=== PATIENT | female | born 1945 | race Caucasian/White ===

== ENCOUNTER 2017-07-18 10:26 | Emergency (ER) | payer OTHER, MEDICAID ==
[~2017-07-18] VITALS: Wt 62.0 kg
[~2017-07-18 10:26] MED LIST: ASPI-664 PO; AZIT2.5D4 OP; HYDR25TA6 PO; LISI40TA9 PO; LORA10TA3 PO; METO-429 PO; OMEP40CA6 PO; POTA8CAP PO; SIMV20TA2 PO; SITA100T8 PO
[2017-07-18] MEDS ORDERED: KETOROLAC 30 MG INJ IM STA (10:45)
[2017-07-18] MEDS ORDERED: TRAM50TA2 PO (11:42)
[2017-07-18] MEDS ORDERED: IBUP400T22 PO (11:42)
--- NOTE | 2017-07-18 11:51 | ERD ---
ER Documentation Chief Complaint Chief Complaint back pain HPI This 11-year-old female presents with low back pain since yesterday patient has a history of trauma or inciting events. She denies any urinary complaints, weakness or radiation. She denies any cough, shortness breath or chest pain or abdominal pain. ROS All systems reviewed and are negative except as per history of present illness. Medications Home Meds Active Scripts Tramadol HCl (Tramadol HCl) 50 Mg Tablet, 50 MG PO Q4 Y for PAIN, #20 TAB Prov:HENRY ALEX MD 07/18/17 Ibuprofen* (Motrin*) 400 Mg Tab, 400 MG PO Q6, #20 TAB Prov:HENRY ALEX MD 07/18/17 Azithromycin (Azasite) 2.5 Ml Drops, 2.5 ML OP BID for 5 Days, BOTTLE Prov:VENTURA GRAVES NP 12/08/15 Reported Medications Loratadine* (Loratadine*) 10 Mg Tablet, 10 MG PO DAILY, TAB 01/06/15 Potassium Chloride* (Potassium Chloride*) 8 Meq Capsule.er, 8 MEQ PO DAILY, CAP 01/06/15 Simvastatin (Simvastatin) 20 Mg Tablet, 20 MG PO HS, TAB 01/06/15 Omeprazole* (Omeprazole*) 40 Mg Capsule.dr, 40 MG PO BID, CAP 01/06/15 Hydrochlorothiazide* (Hydrochlorothiazide*) 25 Mg Tab, 25 MG PO DAILY, TAB 01/06/15 Sitagliptin* (Januvia*) 100 Mg Tablet, 100 MG PO DAILY, TAB 01/06/15 Lisinopril* (Lisinopril*) 40 Mg Tablet, 40 MG PO DAILY, TAB 01/06/15 Aspirin* (Aspirin* EC) 81 Mg Tablet.dr, 81 MG PO DAILY, TAB 01/06/15 Metoprolol Tartrate* (Lopressor*) 50 Mg Tab, 50 MG PO BID, TAB 01/06/15 Allergies Allergies: Coded Allergies: No Known Allergy (Unverified , 07/18/17) PMhx/Soc History of Surgery: Yes (APPENDECTOMY, TUBAL LIGATION, tonsils, gallbladder) Anesthesia Reaction: No Hx Neurological Disorder: No Hx Respiratory Disorders: No Hx Cardiac Disorders: Yes (HTN, HYPERLIPIDEMIA) Hx Psychiatric Problems: No Hx Miscellaneous Medical Probl: Yes (GERD, dm) Hx Alcohol Use: No Hx Substance Use: No Hx Tobacco Use: No Smoking Status: Never smoker Physical Exam Vitals Vital Signs Date Time Temp Pulse Resp B/P Pulse Ox O2 Delivery O2 Flow Rate FiO2 07/18/17 10:28 98.2 70 20 103/56 97 Physical Exam Const: [] Alert, eck-hca-somdfwaas. Head: Atraumatic Eyes: Normal Conjunctiva ENT: Normal External Ears, Nose and Mouth. Neck: Full range of motion..~ No meningismus. Resp: Clear to auscultation bilaterally Cardio: Regular rate and rhythm, no murmurs Abd: Soft, non tender, non distended. Normal bowel sounds Skin: No petechiae or rashes Back: No midline or flank tenderness. Tenderness in the L4-5 paraspinous muscles. No midline tenderness or deformities. Ext: No cyanosis, or edema Neur: Awake and alert Psych: Normal Mood and Affect Results 24 hrs Current Medications Medications (Trade) Dose Ordered Sig/Howard Route PRN Reason Start Time Stop Time Status Last Admin Dose Admin Ketorolac Tromethamine (Toradol) 30 mg ONCE STAT IM 07/18/17 10:45 07/18/17 10:46 DC 07/18/17 11:16 Procedures/MDM Was given Toradol 30 mg IM. X-ray LS-Spine 3V Interpreted by me: Bones: No fracture, or lytic lesions Joints: No dislocation Foreign body: None impression have normal lumbar spine x-ray Patient presents with signs and symptoms likely muscular skeletal low back pain. Current signs or symptoms do not suggest UTI, pyelonephritis, large deficit, epidural abscess, cauda equina syndrome. She will with ibuprofen, instructions for back exercises and tramadol primary care follow-up and return precautions. The patient was stable with no new complaints during the ER course. Clinically, there is no current evidence to suggest meningitis, sepsis, acute abdomen, pneumonia, acute coronary syndrome, pulmonary embolism, or any other emergent condition appearing to require further evaluation or hospitalization. The patient should certainly return for any new or worsening symptoms per the aftercare instructions. They should otherwise follow-up with her primary care doctor for reevaluation this week. Departure Diagnosis: Primary Impression: Back pain Back pain location: low back pain Chronicity: acute Back pain laterality: bilateral Sciatica presence: without sciatica Qualified Code: M54.5 - Acute bilateral low back pain without sciatica Condition: Stable Patient Instructions: Back Exercises, Lumbar, Back Pain (Acute Or Chronic) Additional Instructions: X-ray appears normal. Recheck for new or worsening symptoms or primary care doctor. HENRY ALEX MD Jul 18, 2017 11:51
[2017-07-18 11:58] VITALS: BP 104/66; PULSE 70; RESP 19
--- NOTE | 2017-07-18 13:01 | RADRPT ---
PROCEDURE: XR Lumbar Spine. CLINICAL INDICATION: Back pain. TECHNIQUE: Three views. AP, lateral and cone-down lateral view of the lumbar spine were obtained. COMPARISON: No prior studies are available for comparison. FINDINGS: There is normal stature and alignment of the vertebrae. There is no fracture. There is no lytic or blastic lesion. There are degenerative changes with hypertrophy of the facet joints at L4-5 and L5-S1. Surgical clips are present in the right upper quadrant of the abdomen. Vascular calcifications are p resent consistent with atherosclerosis. IMPRESSION: 1. Degenerative changes of the lower lumbar spine. 2. Prior right upper quadrant abdomen surgery. The III atherosclerosis. 4. Otherwise unremarkable images of the lumbar spine. RPTAT: QQ .Juno Hernadez MD, MD Date Time Electronically viewed and signed by .Juno Hernadez MD, on 07/18/2017 13:01 .R/
== END 2017-07-18 12:10 | disposition home or self-care (01) ==
LOC: FTE 10:26
DX: M54.5 Low back pain (principal); I10 Essential (primary) hypertension; E11.9 Type 2 diabetes mellitus without complications; Z79.82 Long term (current) use of aspirin; Z79.84 Long term (current) use of oral hypoglycemic drugs
CPT/HCPCS: 72100; 96372; 99284; J1885

== ENCOUNTER 2017-09-19 09:36 | Emergency (ER) | END 2017-09-19 11:09 | disposition home or self-care (01) ==

== ENCOUNTER 2018-02-22 14:18 | Emergency (ER) | END 2018-02-22 17:24 | disposition home or self-care (01) ==

== ENCOUNTER 2018-03-26 11:52 | Emergency (ER) | END 2018-03-26 14:01 | disposition home or self-care (01) ==

== ENCOUNTER 2018-05-28 11:24 | Emergency (ER) | END 2018-05-28 12:22 | disposition home or self-care (01) ==

== ENCOUNTER 2018-06-28 14:29 | Emergency (ER) | END 2018-06-28 17:48 | disposition home or self-care (01) ==

== ENCOUNTER 2018-07-06 14:23 | Emergency (ER) | END 2018-07-06 15:47 | disposition home or self-care (01) ==

== ENCOUNTER 2018-11-25 14:05 | Emergency (ER) | payer OTHER, MEDICAID ==
[~2018-11-25] VITALS: Wt 64.0 kg
[~2018-11-25 14:05] MED LIST changes: +ACET500C5 PO; +ALBU8.5H8 INH; -ASPI-664 PO; +ASPI-817 PO; +FAMO-96 PO; +FER325 PO; +FURO-110 PO; +HYDR-3980 PO; +IBUP-1561 PO; +LISI40TA3 PO; -LISI40TA9 PO; +PRED20TA PO; +RANI150T35 PO; +RANI150T5 PO; +SITA100T11 PO; -SITA100T8 PO; +TRAM50TA2 PO
[2018-11-25 14:07] VITALS: PULSE 81; RESP 18
[2018-11-25] MEDS ORDERED: ACETAMINOPHEN 500 MG TAB PO STA (14:55)
[2018-11-25] MEDS ORDERED: BACITRACIN 0.9 GM OINT TOP ONE (15:00)
--- NOTE | 2018-11-25 15:01 | ERD ---
ER Documentation Chief Complaint Chief Complaint right wrist and right knee pain after a GLF today. no LOC HPI Patient is a 73-year-old female with a past medical history of hypertension, h yperlipidemia, DM type II, presents the ER for concerns of right wrist pain and right knee pain after a trip and fall injury earlier today. Patient states she was rushing to get to work as she was running the. Patient states she tripped on gravel and landed on her bilateral palms and her right knee. Patient has abrasions on her bilateral palms and her right knee. Patient is able to ambulate without any difficulty. Patient is right-hand dominant. Patient denies any previous fractures or dislocations. Patient denies any lightheadedness, dizziness prior to fall injury. Patient did not hit her head. Patient denies loss of consciousness. Patient does not take any blood thinners. ROS All systems reviewed and are negative except as per history of present illness. Medications Home Meds Active Scripts Acetaminophen* (Tylophen*) 500 Mg Capsule, 1 CAP PO Q6H PRN for PAIN AND OR ELEVATED TEMP, #20 CAP Prov:EVANGELISTA CAMPOS PA-C 11/25/18 Ranitidine Hcl* (Ranitidine Hcl*) 150 Mg Tablet, 150 MG PO Q12 PRN for heartburn, #60 TAB Prov:MONICA GARZA DO 07/06/18 Ranitidine Hcl* (Zantac*) 150 Mg Tablet, 150 MG PO BID PRN for EPIGASTRIC PAIN, #14 TAB Prov:MONICA GR MD 06/28/18 Famotidine* (Pepcid*) 20 Mg Tablet, 20 MG PO BID for 4 Days, #30 TAB Prov:JEF JAMIL PA-C 05/28/18 Ranitidine Hcl* (Zantac*) 150 Mg Tablet, 150 MG PO BID PRN for EPIGASTRIC PAIN, #30 TAB Prov:EJF JAMIL PA-C 05/28/18 Furosemide* (Lasix*) 20 Mg Tablet, 20 MG PO DAILY, #20 TAB Prov:CESAR MACKAY MD 03/26/18 Acetaminophen* (Tylophen*) 500 Mg Capsule, 1 CAP PO Q6H PRN for PAIN AND OR ELEVATED TEMP, #20 CAP Prov:EVANGELISTA CAMPOS PA-C 02/22/18 Ferrous Sulfate* (Ferrous Sulfate*) 325 Mg Tabec, 325 MG PO BID, #60 TAB Prov:EVANGELISTA CAMPOS PA-C 02/22/18 Hydrocodone/Acetaminophen (Tyrone 10-325 Tablet) 1 Each Tablet, 1 TAB PO Q6H PRN for PAIN, #20 TAB Prov:NELIDA HERNANDEZ. DO 09/19/17 Prednisone* (Prednisone*) 20 Mg Tab, 60 MG PO DAILY for 5 Days, TAB Prov:NELIDA HERNANDEZ A. DO 09/19/17 Albuterol Sulfate* (Proair HFA*) 8.5 Gm Hfa.aer.ad, 2 PUFF INH Q4, #1 INHALER Prov:NELIDA HERNANDEZ DO 09/19/17 Tramadol HCl (Tramadol HCl) 50 Mg Tablet, 50 MG PO Q4 PRN for PAIN, #20 TAB Prov:HENRY ALEX MD 07/18/17 Ibuprofen* (Motrin*) 400 Mg Tab, 400 MG PO Q6, #20 TAB Prov:HENRY ALEX MD 07/18/17 Azithromycin (Azasite) 2.5 Ml Drops, 2.5 ML OP BID for 5 Days, BOTTLE Prov:VENTURA GRAVES NP 12/08/15 Reported Medications Loratadine* (Loratadine*) 10 Mg Tablet, 10 MG PO DAILY, TAB 01/06/15 Potassium Chloride* (Potassium Chloride*) 8 Meq Capsule.er, 8 MEQ PO DAILY, CAP 01/06/15 Simvastatin (Simvastatin) 20 Mg Tablet, 20 MG PO HS, TAB 01/06/15 Omeprazole* (Omeprazole*) 40 Mg Capsule.dr, 40 MG PO BID, CAP 01/06/15 Hydrochlorothiazide* (Hydrochlorothiazide*) 25 Mg Tab, 25 MG PO DAILY, TAB 01/06/15 Sitagliptin* (Januvia*) 100 Mg Tablet, 100 MG PO DAILY, TAB 01/06/15 Lisinopril* (Lisinopril*) 40 Mg Tablet, 40 MG PO DAILY, TAB 01/06/15 Aspirin* (Aspirin* EC) 81 Mg Tablet.dr, 81 MG PO DAILY, TAB 01/06/15 Metoprolol Tartrate* (Lopressor*) 50 Mg Tab, 50 MG PO BID, TAB 01/06/15 Allergies Allergies: Coded Allergies: No Known Allergy (Unverified , 07/18/17) PMhx/Soc History of Surgery: Yes (appendectomy, gall bladder removal, hernia repair) Anesthesia Reaction: No Hx Neurological Disorder: No Hx Respiratory Disorders: No Hx Cardiac Disorders: No (heart valve defect) Hx Psychiatric Problems: No Hx Miscellaneous Medical Probl: Yes (dm, htn, ) Hx Alcohol Use: Yes Hx Substance Use: No Hx Tobacco Use: Yes FmHx Family History: No diabetes Physical Exam Vitals Vital Signs Date Temp Pulse Resp B/P (MAP) Pulse Ox O2 O2 Flow FiO2 Time Delivery Rate 11/25/18 98.0 81 18 170/76 99 14:07 (107) Physical Exam GENERAL: Well-developed, well-nourished female. Appears in no acute distress. Speaking full sentences HEAD: Normocephalic, atraumatic. EYES: Pupils are equally reactive bilaterally. EOMs grossly intact. No conjunctival erythema. ENT: Moist mucous membranes. No uvula deviation. No kissing tonsils. NECK: Supple. No meningismus. Normal range of motion of the neck. No cervical midline tenderness LUNG: Clear to auscultation bilaterally. No rhonchi, wheezing, rales or coarse breath sounds. HEART: Regular rate and rhythm. No murmurs, rubs or gallops BACK: No midline tenderness. EXTREMITIES: Equal pulses bilaterally. No peripheral clubbing, cyanosis or edema. No unilateral leg swelling. NEUROLOGIC: Alert and oriented. Moving all four extremities without any difficulty. Normal speech. Steady gait. SKIN: Superficial abrasions and small area of skin avulsions noted on the patient's bilateral palms. Superficial abrasions on patient's right knee. RLE: No obvious deformity or swelling noted. Full range of motion. Tender to palpation of the anterior knee. Nontender palpation of the proximal tibia/fibula, distal femur. Sensation intact to light touch. Neurovascularly intact. (Able to plantarflex, dorsiflex, priyank foot, invert foot, raise big toe.) 2+ DP and DT pulses. RUE: No obvious deformity or swelling noted. Tender to palpation over the distal wrist. Mild tenderness to palpation in the snuffbox. Slightly decreased range of motion of the wrist. Normal range of motion of all digits. Sensation intact to light touch. Neurovascularly intact. (Able to give thumbs up, make an ok sign, cross digits 2 and 3, thumb to pinky opposition. 2+ RP.) Results 24 hrs Current Medications Medications Dose Sig/Howard Start Time Status Last (Trade) Ordered Route PRN Stop Time Admin Dose Reason Admin Bacitracin 1 applic ONCE ONCE 11/25/18 DC 11/25/18 (Bacitracin TOP 15:00 15:01 Oint (Ud)) 11/25/18 15:01 1,000 mg ONCE STAT 11/25/18 DC 11/25/18 Acetaminophen PO 14:55 15:04 (Tylenol 11/25/18 14:57 Tab) Procedures/MDM ED COURSE: The patient was stable throughout ED course. I kept the patient and/or family informed of laboratory and diagnostic imaging results throughout the ED course. . DIAGNOSTIC IMAGING: Read by radiologist. Patient: SHARI NAYAK : 1945 Age: 73 Sex: F MR #: [id number] DOS: 11/25/18 1455 Ordering MD: EVANGELISTA CAMPOS PA-C Location: [facility] Room/Bed: PROCEDURE: XR Knee. CLINICAL INDICATION: R knee pain TECHNIQUE: AP, lateral and oblique view of the right knee were obtained. The images reviewed on a PACS workstation. COMPARISON: None. FINDINGS: Small curvilinear ossification adjacent to the proximal fibular head, seen only on the lateral view is age indeterminate but could represent a small avulsion fracture. Otherwise no fracture detected. No dislocation. No significant arthropathy. Small joint effusion. IMPRESSION: Small curvilinear ossific body adjacent to the proximal head of the fibula is age indeterminate but could represent a small avulsion fracture of there is history of recent injury. Remainder of the knee demonstrates small joint effusion without evidence of additional fracture. RPTAT: XX Physician Jaylan Date Time Electronically viewed and signed by Physician Jaylan on 11/25/2018 15:47 RF/ CC: EVANGELISTA CAMPOS PA-C [id number] Patient: SHARI NAYAK : 1945 Age: 73 Sex: F MR #: [id number] #: [id number] DOS: 11/25/18 1455 Ordering MD: EVANGELISTA CAMPOS PA-C Location: [facility] Room/Bed: PROCEDURE: Right wrist x-ray CLINICAL INDICATION: R wrist pain TECHNIQUE: AP, lateral and oblique views of the wrist were obtained. COMPARISON: None FINDINGS: No acute fracture or dislocation. Mild degenerative joint disease of the joint spaces with mild joint space narrowing small marginal osteophyte formation. No erosions. Moderate soft tissue swelling, most pronounced at the dorsum of the wrist without evidence of foreign body or soft tissue gas. IMPRESSION: Soft tissue swelling without evidence of acute fracture. Mild polyarticular degenerative joint disease. RPTAT: XX Physician Jaylan Date Time Electronically viewed and signed by Physician Jaylan on 11/25/2018 15:46 RF/ CC: EVANGELISTA CAMPOS PA-C [id number] PROCEDURES: SPLINT APPLICATION: The patient was verbally consented at bedside prior to splint application. Patient was explained the risks, benefits and alternatives to this procedure. The patient was neurovascularly intact prior to and status post application of the splint. The patient tolerated the procedure well with no complications. Splint type: Knee immobilizer Extremity: Right knee Indication: Possible avulsion of the fibula head Splint type: Velcro thumb spica wrist splint Extremity: Right wrist Indication: Unable to rule out occult scaphoid fracture MEDICATIONS GIVEN: Tylenol Patient tolerated medication well with no adverse reactions. Patient reported improvement in pain. MEDICAL DECISION MAKING: This is a 73-year-old female with a past medical history of hypertension, hyperlipidemia, DM type II, presents the ER for concerns of right wrist pain and right knee pain after trip and fall injury earlier today. Patient denies any dizziness or lightheadedness prior to injury. Patient states she was in a holloway to get to work.. Vital signs were reviewed. Patient was afebrile. X-ray imaging of the right knee was concerning for possible avulsion fracture of the fibula. Patient was placed in a knee immobilizer. Patient was given a walker to assist with ambulation. Patient was advised to remain nonweigh tbearing to the affected extremity as much as possible. On exam, patient did report snuffbox tenderness to the right wrist. Right wrist series is unremarkable. As a precautionary measure patient was placed in a Velcro thumb spica splint. Patient was advised to follow-up with an youth specialist for both her injuries. Referral information provided. Taxi voucher was given to the patient as she was unable to get a ride home. Social work also did speak with the patient. At this time, patient's presentation is most consistent with a possible fibular head avulsion fracture and right wrist pain. Low suspicion for intracranial hemorrhage, skull fracture, cervical spine injury, cauda equina syndrome, compartment syndrome. Patient was nontoxic, non-opening prior to discharge. At this time, unable to rule out any meniscus and knee ligament injuries. PRESCRIPTIONS: Tylenol DISCHARGE: At this time, patient is stable for discharge and outpatient management. Patient was given a copy of "imaging studies obtained today. Patient advised to follow-up with youth specialist. I have instructed the patient to follow- up with his/her primary care physician in 1-2 days. I have discussed with the patient the possibility of needing to see an youth specialist for further workup and imaging if the pain persists. I have instructed the patient to promptly return to the ER for any new or worsening symptoms including increased pain, swelling, redness, warmth or fever. The patient and/or family expressed understanding of and agreement with this plan. All questions were answered. Home care instructions were provided. Disclaimer: Inadvertent spelling and grammatical errors are likely due to EHR/dictation software use and do not reflect on the overall quality of patient care. Also, please note that the electronic time recorded on this note does not necessarily reflect the actual time of the patient encounter. Departure Diagnosis: Primary Impression: Right wrist pain Additional Impressions: Fall Encounter type: initial encounter Qualified Codes: W19.XXXA - Unspecified fall, initial encounter Abrasion Fibula fracture Encounter type: initial encounter Fibula location: lateral malleolus Fracture type: closed Fracture alignment: nondisplaced Laterality: right Qualified Codes: S82.64XA - Nondisplaced fracture of lateral malleolus of right fibula, initial encounter for closed fracture Condition: Fair Patient Instructions: Abrasion, Fall, Mechanical Referrals: [facility] YOU HAVE RECEIVED A MEDICAL SCREENING EXAM AND THE RESULTS INDICATE THAT YOU DO NOT HAVE A CONDITION THAT REQUIRES URGENT TREATMENT IN THE EMERGENCY DEPARTMENT. FURTHER EVALUATION AND TREATMENT OF YOUR CONDITION CAN WAIT UNTIL YOU ARE SEEN IN YOUR DOCTORS OFFICE WITHIN THE NEXT 1-2 DAYS. IT IS YOUR RESPONSIBILITY TO MAKE AN APPOINTMENT FOR FOLOW-UP CARE. IF YOU HAVE A PRIMARY DOCTOR --you should call your primary doctor and schedule an appointment IF YOU DO NOT HAVE A PRIMARY DOCTOR YOU CAN CALL OUR PHYSICIAN REFERRAL HOTLINE AT IF YOU CAN NOT AFFORD TO SEE A PHYSICIAN YOU CAN CHOSE FROM THE FOLLOWING [facility] [address] [facility]. [facility] [address] [facility]. [facility] [address] [facility] [facility] [address] [facility]. [facility] [address] [facility]. [facility]. [address] [facility]. [facility] YOU HAVE RECEIVED A MEDICAL SCREENING EXAM AND THE RESULTS INDICATE THAT YOU DO NOT HAVE A CONDITION THAT REQUIRES URGENT TREATMENT IN THE EMERGENCY DEPARTMENT. FURTHER EVALUATION AND TREATMENT OF YOUR CONDITION CAN WAIT UNTIL YOU ARE SEEN IN YOUR DOCTORS OFFICE WITHIN THE NEXT 1-2 DAYS. IT IS YOUR RESPONSIBILITY TO MAKE AN APPOINTMENT FOR FOLOW-UP CARE. IF YOU HAVE A PRIMARY DOCTOR --you should call your primary doctor and schedule and appointment IF YOU DO NOT HAVE A PRIMARY DOCTOR YOU CAN CALL OUR PHYSICIAN REFERRAL HOTLINE AT . IF YOU CAN NOT AFFORD TO SEE A PHYSICIAN YOU CAN CHOSE FROM THE FOLLOWING [facility] INSTITUTIONS: [facility] [address] [place], [place] [id number] [place] [address] [address] [place] [address] [facility] [address] [place] [address] Additional Instructions: Follow-up with an youth specialist on outpatient basis for further management of your fibula fracture and wrist pain. Unable to rule out occult scaphoid fracture. Call your primary care doctor TOMORROW for an appointment during the next 1-2 days.See the doctor sooner or return here if your condition worsens before your appointment time. EVANGELISTA CAMPOS PA-C Nov 25, 2018 15:01
[2018-11-25] MEDS ORDERED: ACET500C5 PO (16:44)
[2018-11-25 17:38] VITALS: BP 160/72
== END 2018-11-25 17:43 | disposition home or self-care (01) ==
LOC: FTE 14:05
DX: S82.64XA Nondisplaced fracture of lateral malleolus of right fibula, initial encounter for closed fracture (principal); S60.512A Abrasion of left hand, initial encounter; S60.511A Abrasion of right hand, initial encounter; S80.211A Abrasion, right knee, initial encounter; I10 Essential (primary) hypertension; E11.9 Type 2 diabetes mellitus without complications; W01.0XXA Fall on same level from slipping, tripping and stumbling without subsequent striking against object, initial encounter; Y92.9 Unspecified place or not applicable; Z87.891 Personal history of nicotine dependence; Z79.82 Long term (current) use of aspirin; Z79.84 Long term (current) use of oral hypoglycemic drugs
CPT/HCPCS: 73562

== ENCOUNTER 2019-02-09 08:59 | Emergency (ER) | payer OTHER, MEDICAID ==
[~2019-02-09] VITALS: Ht 149.9 cm; Wt 64.2 kg
[2019-02-09 09:04] VITALS: BP 139/63; PULSE 77; RESP 19; Ht 149.9 cm; Wt 64.2 kg
[2019-02-09] MEDS ORDERED: KETOROLAC 30 MG INJ IM STA (10:29)
[2019-02-09] MEDS ORDERED: ACET500C5 PO (12:29)
--- NOTE | 2019-02-09 19:24 | ERD ---
ER Documentation Chief Complaint Chief Complaint BACK PAIN HPI 73-year-old female patient with no significant past medical history presents ED complaining of lower back pain that started last night. Patient describes her pain as achy and rates it a 4 out of 10. Reports that she has not taken any medications for her pain. States that she does not lift anything heavy. Denies any saddle anesthesia. Denies any injuries or trauma. Denies any urine or bowel incontinence, nausea, vomiting, diarrhea, neck stiffness. ROS All systems reviewed and are negative except as per history of present illness. Medications Home Meds Active Scripts Acetaminophen* (Tylophen*) 500 Mg Capsule, 1 CAP PO Q6H PRN for PAIN AND OR ELEVATED TEMP, #20 CAP Prov:GABI ALCALA PA-C 02/09/19 Acetaminophen* (Tylophen*) 500 Mg Capsule, 1 CAP PO Q6H PRN for PAIN AND OR ELEVATED TEMP, #20 CAP Prov:EVANGELISTA CAMPOS PA-C 11/25/18 Ranitidine Hcl* (Ranitidine Hcl*) 150 Mg Tablet, 150 MG PO Q12 PRN for heartburn , #60 TAB Prov:MONICA GARZA DO 07/06/18 Ranitidine Hcl* (Zantac*) 150 Mg Tablet, 150 MG PO BID PRN for EPIGASTRIC PAIN, #14 TAB Prov:MONICA GR MD 06/28/18 Famotidine* (Pepcid*) 20 Mg Tablet, 20 MG PO BID for 4 Days, #30 TAB Prov:JEF JAMIL PA-C 05/28/18 Ranitidine Hcl* (Zantac*) 150 Mg Tablet, 150 MG PO BID PRN for EPIGASTRIC PAIN, #30 TAB Prov:JEF JAMIL PA-C 05/28/18 Furosemide* (Lasix*) 20 Mg Tablet, 20 MG PO DAILY, #20 TAB Prov:CESAR MACKAY MD 03/26/18 Acetaminophen* (Tylophen*) 500 Mg Capsule, 1 CAP PO Q6H PRN for PAIN AND OR ELEVATED TEMP, #20 CAP Prov:EVANGELISTA CAMPOS PA-C 02/22/18 Ferrous Sulfate* (Ferrous Sulfate*) 325 Mg Tabec, 325 MG PO BID, #60 TAB Prov:EVANGELISTA CAMPOS PA-C 02/22/18 Hydrocodone/Acetaminophen ([place] 10-325 Tablet) 1 Each Tablet, 1 TAB PO Q6H PRN for PAIN, #20 TAB Prov:NELIDA HERNANDEZ. DO 09/19/17 Prednisone* (Prednisone*) 20 Mg Tab, 60 MG PO DAILY for 5 Days, TAB Prov:IDA HERNANDEZTRACYS A. DO 09/19/17 Albuterol Sulfate* (Proair HFA*) 8.5 Gm Hfa.aer.ad, 2 PUFF INH Q4, #1 INHALER Prov:NELIDA HERNANDEZ. DO 09/19/17 Tramadol HCl (Tramadol HCl) 50 Mg Tablet, 50 MG PO Q4 PRN for PAIN, #20 TAB Prov:HENRY ALEX MD 07/18/17 Ibuprofen* (Motrin*) 400 Mg Tab, 400 MG PO Q6, #20 TAB Prov:HENRY ALEX MD 07/18/17 Azithromycin (Azasite) 2.5 Ml Drops, 2.5 ML OP BID for 5 Days, BOTTLE Prov:VENTURA GRAVES NP 12/08/15 Reported Medications Loratadine* (Loratadine*) 10 Mg Tablet, 10 MG PO DAILY, TAB 01/06/15 Potassium Chloride* (Potassium Chloride*) 8 Meq Capsule.er, 8 MEQ PO DAILY, CAP 01/06/15 Simvastatin (Simvastatin) 20 Mg Tablet, 20 MG PO HS, TAB 01/06/15 Omeprazole* (Omeprazole*) 40 Mg Capsule.dr, 40 MG PO BID, CAP 01/06/15 Hydrochlorothiazide* (Hydrochlorothiazide*) 25 Mg Tab, 25 MG PO DAILY, TAB 01/06/15 Sitagliptin* (Januvia*) 100 Mg Tablet, 100 MG PO DAILY, TAB 01/06/15 Lisinopril* (Lisinopril*) 40 Mg Tablet, 40 MG PO DAILY, TAB 01/06/15 Aspirin* (Aspirin* EC) 81 Mg Tablet.dr, 81 MG PO DAILY, TAB 01/06/15 Metoprolol Tartrate* (Lopressor*) 50 Mg Tab, 50 MG PO BID, TAB 01/06/15 Allergies Allergies: Coded Allergies: No Known Allergy (Unverified , 07/18/17) PMhx/Soc History of Surgery: Yes (appendectomy, gall bladder removal, hernia repair) Anesthesia Reaction: No Hx Neurological Disorder: No Hx Respiratory Disorders: No Hx Cardiac Disorders: No (heart valve defect) Hx Psychiatric Problems: No Hx Miscellaneous Medical Probl: Yes (dm, htn, ) Hx Alcohol Use: Yes Hx Substance Use: No Hx Tobacco Use: Yes Smoking Status: Never smoker FmHx Family History: No diabetes, No coronary disease Physical Exam Vitals Vital Signs Date Temp Pulse Resp B/P (MAP) Pulse Ox O2 O2 Flow FiO2 Time Delivery Rate 02/09/19 98.4 77 19 139/63 96 09:04 (88) Physical Exam Const: [id number], well-nourished. In no acute distress. Head: Atraumatic, normocephalic Eyes: Normal Conjunctiva without injection. No purulent discharge. ENT: Normal external ear, nose. Moist oropharynx without tonsillar exudates. Non-erythematous pharynx. Uvula midline. No drooling. No trismus. Neck: No cervical midline tenderness. Full range of motion. No meningismus. No cervical lymphadenopathy. No JVD. Resp: Clear to auscultation bilaterally. No wheezing, rhonchi, rales, or crackles. No accessory muscle use. No retractions. Cardio: Regular rate and rhythm. No murmurs, rubs or gallops. Abd: Soft, nontender, non distended. Normal bowel sounds. No palpable masses. No rebound tenderness. No guarding. Negative McBurney's point. Negative psoas sign. Negative obturator sign. Skin: No petechiae or rashes Back: No midline tenderness. No CVA tenderness. Ext: No cyanosis, or edema. Neur: Awake and alert. Normal gait. Normal coordination. Psych: Normal Mood and Affect Results 24 hrs Current Medications Medications Dose Sig/Howard Start Time Status Last (Trade) Ordered Route PRN Stop Time Admin Dose Reason Admin Ketorolac 30 mg ONCE STAT 02/09/19 DC 02/09/19 Tromethamine IM 10:29 10:38 (Toradol) 02/09/19 10:32 Procedures/MDM 73-year-old female patient with no significant past medical history presents to ED complaining of lower back pain. Patient is afebrile and nontoxic-appearing. Patient is ambulating here in the ED without difficulty. Lumbar x-ray ordered to further evaluate patient. IMPRESSION: Osteopenia. Mild scoliosis and straightening of the normal lordosis. This could be positional in nature. 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 Anterolisthesis has mildly increased when compared with prior exam. Mild degenerative disc disease from L2-L5. Facet arthrosis in the lower lumbar spine. Calcified atherosclerosis in the aorta. If further characterization is needed CT or MRI could be helpful. If there is high clinical suspicion for acute traumatic injury, further evaluation with CT should be considered. Patient likely has musculoskeletal pain, arthritis, osteopenia in which patient needs a DEXA scan with primary care physician. Denies saddle anesthesia, numbness or tingling, urine or bowel incontinence, weakness. Low suspicion for cauda equina syndrome, cord compression, nephrolithiasis, aortic aneurysm, aortic dissection, epidural abscess, spinal hematoma, malignancy, pyelonephritis, or other emergent conditions. Diagnosis: Back pain Discharge medications: Tylenol Follow up with primary care physician in 1-2 days. Instructed patient to return to the ED sooner for any worsening symptoms. Patient's questions were answered. Patient is hemodynamically stable. Patient understood and agreed with discharge plan. Patient discharged stable. Disclaimer: Inadvertent spelling and grammatical errors are likely due to EHR/dictation software use and do not reflect on the overall quality of patient care. Also, please note that the electronic time recorded on this note does not necessarily reflect the actual time of the patient encounter. Departure Diagnosis: Primary Impression: Back pain Back pain location: back pain in unspecified location Chronicity: unspecified Back pain laterality: midline Qualified Codes: M54.89 - Other dorsalgia Condition: Stable Patient Instructions: Osteoarthritis: Common Sites, Osteoarthritis: Managing Pain, Osteoarthritis: Tips for Daily Living, Back Pain (Acute Or Chronic) Referrals: [facility] YOU HAVE RECEIVED A MEDICAL SCREENING EXAM AND THE RESULTS INDICATE THAT YOU DO NOT HAVE A CONDITION THAT REQUIRES URGENT TREATMENT IN THE EMERGENCY DEPARTMENT. FURTHER EVALUATION AND TREATMENT OF YOUR CONDITION CAN WAIT UNTIL YOU ARE SEEN IN YOUR DOCTORS OFFICE WITHIN THE NEXT 1-2 DAYS. IT IS YOUR RESPONSIBILITY TO MAKE AN APPOINTMENT FOR FOLOW-UP CARE. IF YOU HAVE A PRIMARY DOCTOR --you should call your primary doctor and schedule an appointment IF YOU DO NOT HAVE A PRIMARY DOCTOR YOU CAN CALL OUR PHYSICIAN REFERRAL HOTLINE AT IF YOU CAN NOT AFFORD TO SEE A PHYSICIAN YOU CAN CHOSE FROM THE FOLLOWING [facility] [address] [facility] [address] [facility] [address] [facility] [address] [facility] [address] [facility]. [facility] [address] [facility]. [facility] YOU HAVE RECEIVED A MEDICAL SCREENING EXAM AND THE RESULTS INDICATE THAT YOU DO NOT HAVE A CONDITION THAT REQUIRES URGENT TREATMENT IN THE EMERGENCY DEPARTMENT. FURTHER EVALUATION AND TREATMENT OF YOUR CONDITION CAN WAIT UNTIL YOU ARE SEEN IN YOUR DOCTORS OFFICE WITHIN THE NEXT 1-2 DAYS. IT IS YOUR RESPONSIBILITY TO MAKE AN APPOINTMENT FOR FOLOW-UP CARE. IF YOU HAVE A PRIMARY DOCTOR --you should call your primary doctor and schedule and appointment IF YOU DO NOT HAVE A PRIMARY DOCTOR YOU CAN CALL OUR PHYSICIAN REFERRAL HOTLINE AT . IF YOU CAN NOT AFFORD TO SEE A PHYSICIAN YOU CAN CHOSE FROM THE FOLLOWING [facility]: [facility] [id number] [place] [address] [facility] [address] [place] [place] [id number] [place] [address] [address] [place] [address] [facility] URGENT CARE/SPECIALTIES Additional Instructions: Llame al doctor MAANA y shruti nikia JIGAR PARA DENTRO DE 2-3 JONES.Dgale a la secretaria que nosotros le instruimos hacer esta jigar.Avise o llame si cervantes condicin se empeora antes de la jigar. Regresa aqui si peor o no mejor. GABI ALCALA PA-C February 09, 2019 19:24
== END 2019-02-09 12:42 | disposition home or self-care (01) ==
LOC: FTE 08:59
DX: M54.89 Other dorsalgia (principal); I10 Essential (primary) hypertension; E11.9 Type 2 diabetes mellitus without complications; Z79.82 Long term (current) use of aspirin; Z79.84 Long term (current) use of oral hypoglycemic drugs; Z87.891 Personal history of nicotine dependence
CPT/HCPCS: 72100; 96372; 99284; J1885

== ENCOUNTER 2019-04-08 16:31 | Emergency (ER) | payer OTHER, MEDICAID ==
[~2019-04-08] VITALS: Ht 157.5 cm; Wt 64.7 kg
[~2019-04-08 16:31] MED LIST changes: +NAPR-985 PO
[2019-04-08 16:36] VITALS: BP 135/64; PULSE 67; RESP 16; Ht 157.5 cm; Wt 64.7 kg
[2019-04-08] MEDS ORDERED: KETOROLAC 30 MG INJ IM STA (17:19)
--- NOTE | 2019-04-08 17:35 | ERD ---
ER Documentation Chief Complaint Chief Complaint lower back pain x 2 days HPI This is a very pleasant 73-year-old female who presents to the ED complaining of mid lower back pain since yesterday. Pain is constant, localized to her lumbar spine without any radiation down to her lower extremities. She denies any fall. Pain is worse with walking. No lower extremity numbness. No loss of bowel or bladder control. No fevers. She has been taking Tylenol with intermittent relief. Of note, patient was seen here on February 09 with x-rays of the lumbar spine revealing spondylolisthesis and osteoarthritis of the L5-S1 region. ROS All systems reviewed and are negative except as per history of present illness. Medications Home Meds Active Scripts Naproxen* (Naprosyn*) 500 Mg Tablet, 500 MG PO BID PRN for PAIN AND/OR INFLAMMATION, #30 TAB Prov:DEBORAH CUNNINGHAM PA-C 04/08/19 Acetaminophen* (Tylophen*) 500 Mg Capsule, 1 CAP PO Q6H PRN for PAIN AND OR ELEVATED TEMP, #20 CAP Prov:GABI ALCALA PA-C 02/09/19 Acetaminophen* (Tylophen*) 500 Mg Capsule, 1 CAP PO Q6H PRN for PAIN AND OR ELEVATED TEMP, #20 CAP Prov:EVANGELISTA CAMPOS PA-C 11/25/18 Ranitidine Hcl* (Ranitidine Hcl*) 150 Mg Tablet, 150 MG PO Q12 PRN for heartburn, #60 TAB Prov:MONICA GARZA DO 07/06/18 Ranitidine Hcl* (Zantac*) 150 Mg Tablet, 150 MG PO BID PRN for EPIGASTRIC PAIN, #14 TAB Prov:MONICA GR MD 06/28/18 Famotidine* (Pepcid*) 20 Mg Tablet, 20 MG PO BID for 4 Days, #30 TAB Prov:JEF JAMIL PA-C 05/28/18 Ranitidine Hcl* (Zantac*) 150 Mg Tablet, 150 MG PO BID PRN for EPIGASTRIC PAIN, #30 TAB Prov:JEF JAMIL PA-C 05/28/18 Furosemide* (Lasix*) 20 Mg Tablet, 20 MG PO DAILY, #20 TAB Prov:CESAR MACKAY MD 03/26/18 Acetaminophen* (Tylophen*) 500 Mg Capsule, 1 CAP PO Q6H PRN for PAIN AND OR ELEVATED TEMP, #20 CAP Prov:EVANGELISTA CAMPOS PA-C 02/22/18 Ferrous Sulfate* (Ferrous Sulfate*) 325 Mg Tabec, 325 MG PO BID, #60 TAB Prov:EVANGELISTA CAMPOS PA-C 02/22/18 Hydrocodone/Acetaminophen ([place] 10-325 Tablet) 1 Each Tablet, 1 TAB PO Q6H PRN for PAIN, #20 TAB Prov:NELIDA HERNANDEZ DO 09/19/17 Prednisone* (Prednisone*) 20 Mg Tab, 60 MG PO DAILY for 5 Days, TAB Prov:NELIDA HERNANDEZ DO 09/19/17 Albuterol Sulfate* (Proair HFA*) 8.5 Gm Hfa.aer.ad, 2 PUFF INH Q4, #1 INHALER Prov:NELIDA HERNANDEZ DO 09/19/17 Tramadol HCl (Tramadol HCl) 50 Mg Tablet, 50 MG PO Q4 PRN for PAIN, #20 TAB Prov:HENRY ALEX MD 07/18/17 Ibuprofen* (Motrin*) 400 Mg Tab, 400 MG PO Q6, #20 TAB Prov:HENRY ALEX MD 07/18/17 Azithromycin (Azasite) 2.5 Ml Drops, 2.5 ML OP BID for 5 Days, BOTTLE Prov:VENTURA GRAVES Samanta GRAF 12/08/15 Reported Medications Loratadine* (Loratadine*) 10 Mg Tablet, 10 MG PO DAILY, TAB 01/06/15 Potassium Chloride* (Potassium Chloride*) 8 Meq Capsule.er, 8 MEQ PO DAILY, CAP 01/06/15 Simvastatin (Simvastatin) 20 Mg Tablet, 20 MG PO HS, TAB 01/06/15 Omeprazole* (Omeprazole*) 40 Mg Capsule.dr, 40 MG PO BID, CAP 01/06/15 Hydrochlorothiazide* (Hydrochlorothiazide*) 25 Mg Tab, 25 MG PO DAILY, TAB 01/06/15 Sitagliptin* (Januvia*) 100 Mg Tablet, 100 MG PO DAILY, TAB 01/06/15 Lisinopril* (Lisinopril*) 40 Mg Tablet, 40 MG PO DAILY, TAB 01/06/15 Aspirin* (Aspirin* EC) 81 Mg Tablet.dr, 81 MG PO DAILY, TAB 01/06/15 Metoprolol Tartrate* (Lopressor*) 50 Mg Tab, 50 MG PO BID, TAB 01/06/15 Allergies Allergies: Coded Allergies: No Known Allergy (Unverified , 07/18/17) PMhx/Soc History of Surgery: Yes (appendectomy, gall bladder removal, hernia repair) Anesthesia Reaction: No Hx Neurological Disorder: No Hx Respiratory Disorders: No Hx Cardiac Disorders: No (heart valve defect) Hx Psychiatric Problems: No Hx Miscellaneous Medical Probl: Yes (dm, htn, ) Hx Alcohol Use: Yes Hx Substance Use: No Hx Tobacco Use: Yes Smoking Status: Never smoker Physical Exam Vitals Vital Signs Date Temp Pulse Resp B/P (MAP) Pulse Ox O2 O2 Flow FiO2 Time Delivery Rate 04/08/19 98.2 67 16 135/64 99 16:36 (87) Physical Exam Const: No acute distress Head: Atraumatic Eyes: Normal Conjunctiva ENT: Normal External Ears, Nose and Mouth. Neck: Full range of motion. No meningismus. Skin: No petechiae or rashes Back: + Lower lumbar tenderness to palpation around the L5-S1 region, negative straight leg raise, bilateral lower extremity strength 5 out of 5. Sensation grossly normal. Ext: No cyanosis, or edema Neur: Awake and alert Psych: Normal Mood and Affect Results 24 hrs Current Medications Medications Dose Sig/Howard Start Time Status Last (Trade) Ordered Route PRN Stop Time Admin Dose Reason Admin Ketorolac 30 mg ONCE STAT 04/08/19 DC 04/08/19 Tromethamine IM 17: 17:25 (Toradol) 04/08/19 17:20 Procedures/MDM LABS & DIAGNOSTIC IMAGING: IMPRESSION: Osteopenia. Mild scoliosis and straightening of the normal lordosis. This could be positional in nature. 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 Anterolisthesis has mildly increased when compared with prior exam. Mild degenerative disc disease from L2-L5. Facet arthrosis in the lower lumbar spine. Calcified atherosclerosis in the aorta. If further characterization is needed CT or MRI could be helpful. If there is high clinical suspicion for acute traumatic injury, further evaluation with CT should be considered. ED COURSE: The patient was given IM Toradol The medication was well tolerated and the patient had market improvement in s ymptoms. The patient remained stable throughout ED course. MEDICAL DECISION MAKIN-year-old female presents with atraumatic low back pain. Records reviewed and patient had a lumbar x-ray on February 09, 2019 revealing arthritis and spondylolisthesis. I discussed with patient this is likely the cause of her pain. There are no focal neurological deficits on physical exam. Further imaging imaging was therefore not indicated at this time. I have low suspicion for epidural abscess, cauda equina, cord compression or compression fracture. Patient will be treated conservatively with appropriate pain control. Patient that she may need referral from primary care provider to an orthopedist for further treatment of her pain. Strict return precautions were discussed. PRESCRIPTIONS: Naproxen SPECIALIST FOLLOW UP RECOMMENDED: Ortho Patient has been advised to follow up with primary care in 1-2 days. Departure Diagnosis: Primary Impression: Spondylisthesis Spinal region: lumbar Qualified Codes: M43.16 - Spondylolisthesis, lumbar region Condition: Stable Patient Instructions: Back Pain (Acute Or Chronic) Referrals: [facility] 7 a.m.- 11 p.m. Every Day of the Week NO APPOINTMENT OR AUTHORIZATION NEEDED Additional Instructions: Follow-up with your regular doctors may need referral to an orthopedist for your ongoing back pain. Take copy of your x-ray with you. Take the Naprosyn as needed. Return here for any lower extremity numbness, worsening back pain or any other concerns. Comments patient evaluated with CARLEE, agree with assessment and plan DEBORAH Moreno PA-C Apr 08, 2019 17:35 MONICA GARZA DO Apr 12, 2019 11:58
== END 2019-04-08 17:34 | disposition home or self-care (01) ==
LOC: FTE 16:31
DX: M43.16 Spondylolisthesis, lumbar region (principal); I10 Essential (primary) hypertension; E11.9 Type 2 diabetes mellitus without complications; Z79.82 Long term (current) use of aspirin; Z79.84 Long term (current) use of oral hypoglycemic drugs; Z87.891 Personal history of nicotine dependence
CPT/HCPCS: 96372; 99284; J1885